=== PATIENT | female | born 1990 | race Caucasian/White ===

== ENCOUNTER 2025-06-30 18:25 | Emergency (ER) | payer BC, SELFPAY ==
--- OUTSIDE RECORDS SUMMARY | 2025-06-30 18:28 | XMS_ITS | Clinical Summary ---
Author Organization [employer] [facility] Address [address] [place] [id number] Care Team Providers Care Financial Sales Manager Name Role Phone Paulette Kraus MD Primary Care Provider Allergies No known active allergies Medications omeprazole 20 mg tabletIndicati ons:Chronic GERD Take 1 Tablet (20 mg) by mouth once daily before a meal. 90 Tablet 5 Active drospirenone-e thinyl estradioL 3-0.02 mg tabletIndicati ons:DUB (dysfunctional uterine bleeding) Take 1 Tablet by mouth once daily. 84 Tablet 3 5 Active venlafaxine (EFFEXOR XR) 150 mg Extended-Relea se capsuleIndicat ions:Anxiety TAKE 1 CAPSULE (150 MG) BY MOUTH ONCE DAILY WITH EVENING MEAL 90 Capsule 5 Active venlafaxine 150 mg Extended-Relea se capsuleIndicat ions:Anxiety Take 1 Capsule (150 mg) by mouth once daily with evening meal. 90 Capsule 5 06/18/20 25 Discontinued Active Problems Problem Noted Date Diagnosed Date Pap smear for cervical cancer screening 11/09/19 23 Overview (12/12/2022): 11/2022 NIL/HPV negative. Plan: Pap/HPV due 11/2027. Anemia 08/17/2011 Anxiety 07/19/2011 Post traumatic stress disorder (PTSD) 07/19/2011 GERD (gastroesophageal reflux disease) 8 Resolved Problems Problem Noted Date Diagnosed Date Resolved Date 03/26/2017 10/04/2017 Overview (08/07/2017): Rh Negative rhogam 06/19/2017 TDaP and Flu 05/31/2017 Estimated Date of Delivery: 08/28/17 Patient's last menstrual period was 10/31/2016 (exact date). Last Tdap- 05/31/2017 Last Flu vaccine- 05/31/2017 No Known Allergies Obstetric History T3 L3 SAB0 TAB0 Ectopic0 Multiple0 Live Births0 # Outcome Date GA Lbr Jonathan/2nd Weight Sex Delivery Anes PTL Lv 4 Current 3 Term 08/18/15 40w0d M Vag 2 Term 11/24/11 40w0d 09:00 4.026 kg (8 lb 14 oz) F Vag Name: Chary 1 Term 11/12/08 40w0d 06:00 2.977 kg (6 lb 9 oz) F Vag Name: Ni Component Latest Ref Rng & Units 12/27/2016 12/27/2016 12/27/2016 2:37 PM 2:37 PM 2:37 PM HEMOGLOBIN 12.0 - 16.0 g/dL 11.9 (L) MCV 80 - 100 fL 85 ANTIBODY SCREEN Negative Negative SPECIMEN EXPIRATION DATE/TIME 12/30/16 23:59 RUBELLA IGG ANTIBODY Positive 3.72 HIV-1/HIV-2 ANTIBODY Non-Reactive Non-Reactive HBSAG Nonreactive Nonreactive TREPONEMA PALLIDUM Negative Negative LYME SCREEN W/REFLEX WEST BLOT Negative Negative HEMOGLOBIN A1C SCREENING <6.4 % 5.0 GLUCOSE,GESTATIONAL 65 - 139 mg/dL Component Latest Ref Rng & Units 05/31/2017 HEMOGLOBIN 12.0 - 16.0 g/dL 11.1 (L) MCV 80 - 100 fL 89 ANTIBODY SCREEN Negative Negative SPECIMEN EXPIRATION DATE/TIME 06/03/17 23:59 RUBELLA IGG ANTIBODY HIV-1/HIV-2 ANTIBODY Non-Reactive HBSAG Nonreactive TREPONEMA PALLIDUM Negative LYME SCREEN W/REFLEX WEST BLOT Negative HEMOGLOBIN A1C SCREENING <6.4 % GLUCOSE,GESTATIONAL 65 - 139 mg/dL 123 Component Latest Ref Rng & Units 07/31/2017 Culture No Group B Streptococcus isolated. Past Medical History: Diagnosis Date Encounter for supervision of other normal , first trimester 12/27/2016 GERD (gastroesophageal reflux disease) 06/03/2008 Supervision of other normal 12/22/2014 Past Surgical History: Procedure Laterality Date LAP CHOLECYSTECTOMY 08/2006 No data on file. 4th Problems (from 12/27/16 to present) No problems associated with this episode. TED [place].....06/19/2017 5:47 PM Encounter for supervision of other normal , first trimester 12/27/2016 10/04/2017 Supervision of other normal 12/22/2014 02/15/2016 Overview (03/29/2015): It's a boy RH negative depression 01/10/20122015 Rh negative status during 07/19/2011 02/15/2016 Supervision of other normal 05/24/2011 02/15/2016 Overview (05/24/2015): It's a boy! Rh negative: RhoGam 05/24/2015 Flu vaccine 05/24/2015 TDaP 05/24/2015 Supervision of normal first 08/05/2008 05/24/2011 Encounters Date Type Department Care Team Description 06/17/2025 Refill [facility] [address] [place] [address] Paulette Kraus MD Refill Request (Venlafaxine) from Last 3 Months Immunizations Immunization Administration Dates Next Due Influenza, IIV3 (Age >=3 years) 07/19/2011,09/23 Influenza, IIV4 08/08/2019,05/31/2017,07/04/2016 ,05/24/2015 Td (Age >=7 Years) 01/27/2002 Tdap 05/31/2017,05/24/2015,01/10/2012 Family History Medical History Relation Name Comments Psychiatric illness Father schizoph tanisha or bipolar disease Cancer-breast Mother doing well Cancer-breast Paternal Aunt Relation Name Status Comments Father Mother Paternal Aunt Social History Tobacco Use Types Packs/Day Years Used Date Smoking Tobacco: Never Smokeless Tobacco: Never Tobacco Cessation:Counseling Given: Yes Alcohol Use Standard Drinks/Week Comments Yes 0 (1 standard drink = 0.6 oz pur e alcohol) ocassionally 2 times a year PHQ-2 Answer Date Recorded PHQ-2 TOTAL SCORE 4 03/09/2025 Social Connections Answer Date Recorded Do you often feel lonely or isolated from those around you? 0 12/29/2024 Financial Resource Strain Answer Date R ecorded Difficulty of Paying Living Expenses 3 12/29/2024 Difficulty of Paying Living Expenses Not on file 12/29/2024 Food Insecurity Answer Date Recorded Do you worry your food will run out before you are able to buy more? 1 12/29/2024 Transportation Needs Answer Date Record ed Does lack of transportation keep you from medica l appointments? 1 12/29/2024 Does lack of transportation keep you from work, meetings or getting things that you need? 1 12/29/2024 Housing Stability Answer Date Recorded What is your housing situation today? 1 12/29/2024 Utilities Answer Date Recorded Do you have trouble paying f or utilities (for example, heat, electricity, water, phone)? 1 12/29/2024 Comments No Sex and Gender Information Value Date Recorded Sex Assigned at Not on file Legal Sex Female 5:23 AM EXECUTIVE DIRECTOR OF MARKETING Gender Identity Not on file Sexual Orientation Not on file Occupation Industry Job Start Date Job End Date [employer] Not on file Not on file Not on f ile Not on file Not on file Not on file Not on file Obstetrics History Para Term AB IAB SAB Ectopic Multiple Livin g Live Births 4 4 4 4 1 Date Outcome GA Total Labor Labor/2nd/3rd Weight Sex Type Anes PTL Rupa A1 A5 Name Clin 11/12 Term 40w 0d 6h 00m/ 2.98 kg (6 lb 9 oz) F Vag Ni 11/23 Term 40w 0d 9h 00m/ 4.03 kg (8 lb 14 oz) F Vag Chary 08/18 Term 40w 0d M Vag 08/22 Term 39w 1d 5h 01m 3h 41m/1h 16m/0h 04m F VAGINA L MARICRUZ Epidur al N Livin g 9 9 Complications:None Last Filed Vital Signs Vital Sign Reading Time Taken Comments Blood Pressure 114/70 12/29/2024 7:28 AM CDT Pulse 72 12/29/2024 7:28 AM CDT Temperature 36.7 C (98 F) 11/14/2022 8:13 AM EXECUTIVE DIRECTOR OF MARKETING Respiratory Rate 18 12/19/2022 1:38 PM CDT Oxygen Saturation 98% 12/29/2024 7:28 AM CDT Inhaled Oxygen Concentration - - Weight 120 kg (264 lb 9.6 oz) 12/29/2024 7:28 AM CDT Height 165.7 cm (5' 5.25) 12/29/2024 7:28 AM CD T Body Mass Index 43.69 12/29/2024 7:28 AM CDT Plan of Treatment Upcoming Encounters Date Type Department Care Team (Late st Contact Info) Description 07/30/2025 4:30 PM EXECUTIVE DIRECTOR OF MARKETING Office Visit [facility] [address] [place] [address] Paulette Kraus MD [address] [place] [address] Health Maintenance Due Date Last Done Comments Hepatitis B series for 19+ (1 of 3 - 19+ 3-dose series) 2008 HPV series for age 9-45 (3 - 3-dose series) 11/22/2011 08/16/2011 (Declined), 05/24/2011 (Declined) COVID-19 vaccine series ( season) 2025 Influenza Vaccine (#1) 2025 9, 05/31/2017, 07/04/2016, Additional history exists BMI (ht and wt on same day) for age 18+ 12/29/2025 12/29/2024, 11/17/2022, 10/19/2022, Additional history exists Depression screening for age 12+ 03/09/2026 03/09/2025, 12/29/2024, 11/17/2022, Additional history exists Tetanus booster 05/31/2027 05/31/2017, 05/11, 01/10/2012, Additional history exists Pap test for age 21-65 11/18/2027 , 11/17/2022, 10/04/2017, Additional history exists RSV vaccine for adults or (1 - 1-dose 75+ series) 2064 HIV for age 15-65 Completed 12/27/2016, , 03/30/2011, Additional history exists Hepatitis C screening for age 18-79 Completed 10/19/2022 Pneumococcal series for age 6-49 Aged Out No longer eligible based on patient's age to complete this topic Procedures Procedure Name Priority Date/Time Associated Diagnosis Comments HPV HIGH RISK Routine 11/17/2022 11:12 AM EXECUTIVE DIRECTOR OF MARKETING Screening for cervical cancer LC HCV ANTIBODY RFX TO QUANT PCR Routine 10/19/2022 11:56 AM EXECUTIVE DIRECTOR OF MARKETING Need for hepatitis C screening test ANTI HIV 1/2 Routine 12/27/2016 2:37 PM CDT Encounter for supervision of other normal , first trimester (HC) from Last 3 Months or Most Recently Relevant to Health Maintenance Results * HPV HIGH RISK (11/17/2022 11:12 AM EXECUTIVE DIRECTOR OF MARKETING) TYPE 16 Negative Negative 11/24/2022 5:39 AM CDT [facility] TYPE 18 Negative Negative 11/24/2022 5:39 AM CDT [facility] OTHER HIGH RISK TYPES Negative Negative 11/24/2022 5:39 AM CDT [facility] Other (Cervical) Non-Blood / Unknown 11/17/2022 11:12 AM EXECUTIVE DIRECTOR OF MARKETING 11/20/2022 8:56 AM CDT Narrative [facility] - 11/24/2022 5:39 AM CDT HPV types 16, 18, 31, 33, 35, 39, 45, 51, 52, 56, 58, 59, 66 and 68 DNA were undetectable or below the pre-set threshold. Methodology: Dipika Aysha 4800 HPV Test us Paulette Kraus MD MICROBIOLOGY Final R esult [facility] [address] [place] [address], * LC HCV ANTIBODY RFX TO QUANT PCR (10/19/2022 11:56 AM EXECUTIVE DIRECTOR OF MARKETING) HCV Ab <0.1 0.0 - 0.9 s/co ratio 10/22/2022 1:07 PM EXECUTIVE DIRECTOR OF MARKETING [facility] ([facility]) Blood BLOOD SPECIMEN / Unknown Venipuncture / Unknown 10/19/2022 11:56 AM EXECUTIVE DIRECTOR OF MARKETING 10/19/2022 11:58 AM EXECUTIVE DIRECTOR OF MARKETING Narrative [facility] ([facility]) - 10/22/2022 1:07 PM EXECUTIVE DIRECTOR OF MARKETING Performed at: [address] [place] [id number] Customer Operations Specialist: Harsh Puentes MD, Phone: [phone] us Paulette Kraus MD LABORATORY Final R esult [facility] ([facility]) [address] [place] [id number], * ANTI HIV 1/2 (12/27/2016 2:37 PM CDT) HIV-1/HIV-2 ANTIBODY Non-Reacti ve Non-Reacti ve 12/27/2016 8:49 PM CDT [facility] Blood BLOOD SPECIMEN / Unknown Venipuncture / Unknown 12/27/2016 2:37 PM CDT 12/27/2016 2:37 PM CDT Narrative [facility] - 12/27/2016 8:49 PM CDT HIV-1 p24 and HIV-1/HIV-2 Ab not detected us Allegra Walsh NP SEND OUTS F inal Result [facility] [address] [place] [address], [place] from Last 3 Months or Most Recently Relevant to Health Maintenance Insurance [employer] OF [employer]-ITS Care Teams Financial Sales Manager Relationship Specialty Start Date End Date Paulette Kraus MD PCP - General Family Practice 07/04/16
[2025-06-30 18:31] VITALS: BP 123/82; PULSE 84; RESP 18; TEMP 36.7; O2SAT 99; BMI 45.8
[2025-06-30 21:06] LABS: Appearance Urine Turbid (Clear)
[2025-06-30 21:15] VITALS: BP 142/80; PULSE 80; RESP 18; TEMP 36.5; O2SAT 99
--- NOTE | 2025-06-30 21:24 | ED.BACK ---
HPI - Back Pain/Injury General Time Seen by Provider: 21:24 Date Seen: 06/30/25 Chief Complaint: Back Injury/Pain Stated Complaint: Lower R flank/back pain Time Seen by Provider: 06/30/25 21:07 Source: patient Mode of arrival: ambulatory History of Present Illness HPI Narrative: Romana is a 34 yo female who presents to the emergency department for evaluation of back pain. Patient reports history of intermittent low mid back pain that she has had since her epidural approximately 16 years ago. Patient reports that on location she does get pain in this location however typically last 1-2 days and resolved on its own. Patient reports that approximately 1 month ago she developed some low back pain. Patient reports worsening symptoms over the past 1-1 and half week with worsening pain, as well as now affecting her daily life. 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 Patient denies any new trauma, injuries. Patient reports the pain is located in her lower mid back (which is similar to prior pain) and also now pain on her right low back. Patient describes the pain as a sharp pain that is worse with movement. Patient denies any radiation of the pain to her lower extremities, denies any lower extremity weakness, paresthesias, no bowel or urinary incontinence or retention. No other complaints. Patient has been taking Tylenol, ibuprofen, icy hot, and lidocaine patch with no improvement of symptoms. Denies any dysuria, hematuria. Patient is not able to get into her primary care provider for a few weeks. Related Data Home Medications ?Medication ?Instructions ?Recorded ?Confirmed drospirenone 3 mg-ethinyl 1 tab PO DAILY 04/26/25 06/30/25 estradiol 0.02 mg tablet (Vestura (28)) venlafaxine 150 mg 150 mg PO QPM 04/26/25 06/30/25 capsule,extended release 24 hr omeprazole 06/30/25 Previous Rx's ?Medication ?Instructions ?Recorded oxycodone 5 mg capsule 5 mg PO Q6H PRN pain #10 caps 06/30/25 Allergies Allergy/AdvReac Type Severity Reaction Status Date / Time No Known Drug Allergies Allergy Verified 04/26/25 14:43 Review of Systems Narrative: Past medical history, past surgical history, medications, allergies, family history, and social history were reviewed with the patient. No additional pertinent items. A medically appropriate review of systems was performed with pertinent positives and negatives noted in HPI, all other systems negative. [facility] Social History Smoking Status: Never smoker How often do you have a drink containing alcohol: never AUDIT-C Alcohol total score: 0 Non-prescribed substance use: denies use Exam Narrative: Exam Narrative: General: Afebrile, in distress 2/2 to pain HEENT: Normocephalic, atraumatic, conjunctiva normal. MMM Neck: non-tender, supple Cardio: regular rate. regular rhythm Resp: Normal work of breathing, no respiratory distress, lungs clear bilaterally, no wheezing, rhonchi, rales Chest/Back: no visual signs of trauma, no step offs or deformities, no CVA tenderness, +TTP lower midline and right side Abdomen: soft, non distension, no tenderness, no peritoneal signs Neuro: alert and fully oriented. CN II-XII intact. Normal strength and sensation in all extremities. MSK: no deformities. Normal range of motion Integumentary/Skin: no rash visualized, normal color Psych: normal affect, normal behavior Const: Vital Signs, click to edit/add: Vital Signs - 24 hr 06/30/25 18:31 06/30/25 21:15 Temperature 98.1 F 97.7 F Pulse Rate [Pulse Oximeter] 84 80 Respiratory Rate 18 18 Blood Pressure [Ri ght Upper Arm] 123/82 142/80 H Pulse Oximetry 99 99 Oxygen Delivery Me thod Room Air Room Air Course Vital Signs Vital signs: Initial Vital Signs Temperature 98.1 F 06/30/25 18:31 Temperature Source Temporal Artery Scan 06/30/25 18:31 Pulse Rate 84 06/30/25 18:31 Respiratory Rate 18 06/30/25 18:31 Blood Pressure 123/82 06/30/25 18:31 Blood Pressure Mean 95 06/30/25 18:31 Blood Pressure Position Sitting 06/30/25 18:31 Pulse Oximetry 99 06/30/25 18:31 Oxygen Delivery Method Room Air 06/30/25 18:31 Vital Signs Temperature 98.1 F 06/30/25 18:31 Pulse Rate 84 06/30/25 18:31 Respiratory Rate 18 06/30/25 18:31 Blood Pressure 123/82 06/30/25 18:31 Pulse Oximetry 99 06/30/25 18:31 Oxygen Delivery Method Room Air 06/30/25 18:31 Temperature 97.7 F 06/30/25 21:15 Pulse Rate 80 06/30/25 21:15 Respiratory Rate 18 06/30/25 21:15 Blood Pressure 142/80 H 06/30/25 21:15 Pulse Oximetry 99 06/30/25 21:15 Oxygen Delivery Method Room Air 06/30/25 21:15 Medications Administered Medications: Discontinued Medications Generic Name Dose Route Start Last Admin Trade Name Mouna PRN Reason Stop Dose Admin Oxycodone HCl 5 mg 06/30/25 21:45 06/30/25 21:58 Oxycodone 5 Mg Tablet PO 06/30/25 21:46 5 mg ONCE ONE Administration MDM - Back Pain/Injury MDM Narrative Medical decision making narrative: Romana is a 34 yo female who presents to the emergency department for evaluation of back pain. Nontoxic appearing, afebrile, in distress secondary to pain. Differential diagnosis includes but is limited to musculoskeletal versus lumbar sacral strain versus sacroiliitis versus pyelonephritis versus sinus versus lumbar radiculopathy versus herniated disc versus less likely cauda equina. Patient here with no red flags, neurologically intact. Patient with tenderness to her lower midline and right (SI). Patient symptoms have been ongoing despite management at home with Tylenol, ibuprofen, lidocaine patch. I did consider imaging with x-rays versus CT however patient with no significant trauma and after shared decision making with patient and her spouse will defer imaging at this time as MRI may be more helpful at this point. Unfortunately we are unable to do an MRI at this time in the ED. discussed with patient and will treat with prednisone taper as well as a short course of oxycodone to take as needed for severe pain or at bedtime. Also recommend continuation of Tylenol, icy Hot, lidocaine patch, avoid heavy lifting, weight-bearing/activities as tolerated. Patient is agreeable to close outpatient follow-up with her primary care provider and orthopedics for further evaluation if no improvement of her symptoms. Strict return precautions discussed if severe pain, weakness, paresthesias, urinary or bowel incontinence/retention, worsening symptoms. Patient understands and agrees the plan. Medical Records Attestation: I reviewed the patient's medical records. Lab Data Labs: Lab Results 06/30/25 Range/Units 20:58 Urine Color Yellow (Yellow) Urine Appearance Turbid A (Clear) Urine pH 5.5 (5.0-8.5) Ur Specific [place] >= 1.030 (1.000-1.030) Urine Protein Negative (Negative) Urine Glucose (UA) Negative (Negative) Urine Ketones Trace A (Negative) Urine Blood Negative (Negative) Urine Nitrite Negative (Negative) Urine Bilirubin Negative (Negative) Urine Urobilinogen 0.2 (0.2-1.0) Ur Leukocyte Esterase Negative (Negative) Urine RBC 0-2 (0-2) Urine WBC 5-10 A (0-5) Ur Squamous Epith Cells Moderate A (None-Few) Urine Bacteria Moderate A (None) Discharge Plan Discharge Clinical Impression: Low back pain Patient Disposition: Home, Self-Care Condition: Stable Instructions: Acute Low Back Pain (ED) Additional Instructions: Please follow-up with your primary care provider for further evaluation, follow-up, and possible imaging (MRI). Please call the [facility] at [phone] to schedule a follow up appointment. Please avoid heavy lifting, take prednisone taper as directed. Please take oxycodone 1 tablet every 6 hours as needed for severe pain at bedtime. Please take Tylenol 1000 mg every 6 hours as needed for pain. Return to the emergency department if severe pain, urinary/bowel incontinence/retention, weakness, tingling, numbness, or any worsening symptoms. It was a pleasure taking care of you today. We hope you feel better soon.. Prescriptions: New oxycodone 5 mg capsule 5 mg PO Q6H PRN (Reason: pain) Qty: 10 0RF No Action venlafaxine 150 mg capsule,extended release 24hr 150 mg PO QPM drospirenone-ethinyl estradiol [Vestura (28)] 3-0.02 mg tablet 1 tab PO DAILY omeprazole Follow Up/Referrals: Paulette Kraus MD [Primary Care Provider, Family Practice] Stand Alone Forms: [employer] Info Instructions
== END 2025-06-30 22:18 | disposition home or self-care (01) ==
LOC: ED 21:50
PROVIDERS: Family Medicine; Emergency Provider Emergency Medicine; PCP Family Medicine
DX: M54.50 Low back pain, unspecified (principal); R10.A1 Flank pain, right side
CPT/HCPCS: 81001; 87086; 99283; 99285; A9270